=== PATIENT | male | born 1985 | race Two or more races ===

== ENCOUNTER 2023-08-12 14:22 | Emergency (ER) | payer OTHER ==
[~2023-08-12] VITALS: Ht 167.6 cm; Wt 95.0 kg
[2023-08-12 15:38] VITALS: BP 137/80; PULSE 58; RESP 18; TEMP 97.9
[2023-08-12] MEDS: ACETAMINOPHEN 500 MG TABLET PO ONE (15:40)
[2023-08-12] MEDS: IBUPROFEN 600 MG TABLET PO ONE (15:40)
== END 2023-08-12 18:42 | disposition home or self-care (01) ==
LOC: EMS 14:26
DX: M25.571 Pain in right ankle and joints of right foot (principal); F17.210 Nicotine dependence, cigarettes, uncomplicated
CPT/HCPCS: 99283